=== PATIENT | female | born 1955 | race Caucasian/White ===

== ENCOUNTER 2020-08-24 13:50 | Emergency (ER) | payer OTHER, MEDICARE ==
[2020-08-24] MEDS ORDERED: oxyCODONE HCL 5 MG TABLET PO ONE (13:53)
[2020-08-24 14:03] VITALS: BP 151/89; PULSE 98; TEMP 98.8; BMI 21.2
[2020-08-24] MEDS ORDERED: oxyCODONE HCL 5 MG TABLET ONE (14:11)
[2020-08-24] MEDS ORDERED: KETOROLAC TROMETHAMINE 30 MG/1 ML VIAL IM ONE (15:01)
[2020-08-24] MEDS ORDERED: KETOROLAC TROMETHAMINE 30 MG/1 ML VIAL ONE (15:03)
[2020-08-24] MEDS ORDERED: morphine CARPU-JECT 2 MG/1 ML DISP.SYRIN IM ONE (15:19)
[2020-08-24] MEDS ORDERED: morphine SULFATE 4 MG/ML VIAL ONE (15:24)
== END 2020-08-24 16:00 | disposition home or self-care (01) ==
LOC: FER 13:50
PROC: 3E0233Z Introduction of Anti-inflammatory into Muscle, Percutaneous Approach (ICD-10-PCS; principal; 2020-08-24)
DX: M25.511 Pain in right shoulder (principal)
CPT/HCPCS: 73030-TC-RT-FY; 73060-TC-RT-FY; 99285-25

== ENCOUNTER 2020-08-26 08:31 | Emergency (ER) | payer OTHER, MEDICARE ==
[2020-08-26 08:40] VITALS: BP 128/77; PULSE 70; TEMP 98; BMI 21.2
[2020-08-26] MEDS ORDERED: KETOROLAC TROMETHAMINE 60 MG/2 ML VIAL IM ONE (08:55)
[2020-08-26] MEDS ORDERED: hydrOXYzine PAMOATE 25 MG CAPSULE (FP) PO ONE ×2 (08:56→09:02)
[2020-08-26] MEDS ORDERED: KETOROLAC TROMETHAMINE 30 MG/1 ML VIAL ONE (09:02)
[2020-08-26 10:43] LABS: HEMATOCRIT 34.4 % (32.4-45.2); MEAN CELL VOLUME 90.5 fl (80-96); MEAN PLT VOLUME 8.7 fl (7.5-11.1); PLATELET COUNT 203 K/MM3 (134-434); RDW 14.3 % (11.6-15.6); WHITE BLOOD COUNT 5.5 K/mm3 (4.0-10.8)
[2020-08-26 10:50] LABS: ALBUMIN 2.4 g/dl (3.4-5.0); CALCIUM 8.5 mg/dl (8.5-10); CREATININE 2.3 mg/dl (0.55-1.3); POTASSIUM 3.3 mmol/L (3.5-5.1); TOT PROT 6.7 g/dl (6.4-8.2)
[2020-08-26 10:54] LABS: ADD RBC MORPHOLOGY YES
[2020-08-26] MEDS ORDERED: SODIUM CHLORIDE 1,000 ML IV STA (11:16)
[2020-08-26 12:24] LABS: ANISOCYTOSIS 1+; PLATELET ESTIMATE ADEQUATE
[2020-08-26] MEDS ORDERED: ACETAMINOPHEN 1000 MG/100 ML VIAL (NON FORMULARY) IVPB ONE (13:16)
[2020-08-26] MEDS ORDERED: ACETAMINOPHEN INJECTION 100 ML IVPB ONE (13:17)
[2020-08-26 13:37] LABS: EPITHELIAL CELLS MODERATE /hpf
[2020-08-26 13:38] LABS: URINE HYALINE CAST 0-2 /lpf
== END 2020-08-26 17:02 | disposition home or self-care (01) ==
LOC: FER 08:31
PROC: 3E0233Z Introduction of Anti-inflammatory into Muscle, Percutaneous Approach (ICD-10-PCS; principal; 2020-08-26)
PROC: 3E033NZ Introduction of Analgesics, Hypnotics, Sedatives into Peripheral Vein, Percutaneous Approach (ICD-10-PCS; 2020-08-26)
PROC: 3E0337Z Introduction of Electrolytic and Water Balance Substance into Peripheral Vein, Percutaneous Approach (ICD-10-PCS; 2020-08-26)
DX: E86.0 Dehydration (principal); M19.011 Primary osteoarthritis, right shoulder; R94.5 Abnormal results of liver function studies
CPT/HCPCS: 36415; 70450-TC; 73030-TC-RT-FY; 73070-TC-RT-FY; 80053; 80307; 81003; 81015; 82550; 84484; 85025; 87086; 93005; 99285-25; J0131